=== PATIENT | male | born 1970 | race Caucasian/White ===

== ENCOUNTER 2018-05-18 17:58 | Outpatient (REF) | payer BC, SELFPAY ==
[2018-05-18 21:48] LABS: BUN 14 mg/dL (7-18); CREATININE 0.95 mg/dL (0.70-1.30); Calcium 9.2 mg/dL (8.5-10.1); Chloride 105 mmol/L (98-107); Glucose 112 mg/dL (70-100); Potassium 4.1 mmol/L (3.5-5.1); Sodium 140 mmol/L (136-145); TSH (W/Ref FT4) 2.63 uIU/mL (0.358-3.74)
== END 2018-05-18 18:18 ==
LOC: NCHCN 17:58
PROVIDERS: Visit Provider Nurse Practitioner Family
DX: E03.9 Hypothyroidism, unspecified (principal); Z00.00 Encounter for general adult medical examination without abnormal findings
CPT/HCPCS: 80048; 84443

== ENCOUNTER 2019-06-08 17:29 | Outpatient (REF) | payer BC, SELFPAY ==
[2019-06-08 21:12] LABS: ALT 43 U/L (16-63); AST 16 U/L (15-37); Calculated LDL 125 mg/dL; Cholesterol 172 mg/dL (<200); HDL Cholesterol 36 mg/dL (40-60); TSH 4.07 uIU/mL (0.36-3.74); Triglyceride 58 mg/dL (<150)
== END 2019-06-08 17:49 ==
LOC: NCHCN 17:29
PROVIDERS: Visit Provider Nurse Practitioner Family
DX: E03.9 Hypothyroidism, unspecified (principal); E66.9 Obesity, unspecified
CPT/HCPCS: 80061; 84443; 84450; 84460

== ENCOUNTER 2019-07-03 06:44 | Day surgery (SDC) | payer BC, SELFPAY ==
[2019-07-03 07:07] VITALS: BP 125/87; PULSE 57; RESP 18; TEMP 36.4; O2SAT 97
--- NOTE | 2019-07-03 07:23 | W.PM.DSUDISC ---
Discharge Plan Disposition Patient Disposition: HOME Condition: Good Discharge Details Reason For Visit: EGD Attending Provider: Mirtha Sage Primary Care Provider: Yuli Deal Home Meds and New Rx's Prescriptions: Continued levothyroxine 125 MCG tablet 125 mcg PO DAILY RF: 0 omeprazole 20 MG tablet,delayed release (DR/EC) 20 mg PO DAILY RF: 0 Discharge Instructions Additional Instructions: Findings: Your endoscopy showed a small hiatal hernia. No Barretts esophagus was identified. Follow up: Routine endoscopy is not needed. If new symptoms such as difficulty swallowing occurs, please contact your primary care provider. Please call if you develop: fevers >101.5 Nausea or Vomiting Abdominal pain that is not transient DAY SURGERY UNIT POST COLONOSCOPY INSTRUCTIONS 1. Because there will be medication in your system for the next 24 hours, you may feel a little sleepy. Your coordination will be affected. Therefore: a. Do not drive or operate dangerous equipment for 24 hours. b. Do not drink alcohol beverages for 24 hours (not even beer). c. Plan to go home and rest for the day. 2. Generally there are no restrictions on your activity after a day or so has gone by, but you may feel a bit fatigued for a few days. 3 After you arrive home you may have a light meal and return to a normal diet as you can tolerate it without feeling sick to your stomach. 4. After surgery, you may feel pain or discomfort. This should be only transient, but if it persists please contact your doctor. 5. If there are any questions regarding the findings of your procedure, please feel free to contact your doctor. 6. If you are unable to contact your doctor with a problem, contact the hospital at [phone]. 7. Continue all your regular medications unless directed otherwise. I understand the above instructions and have no questions. Signature of Patient or Responsible Adult Escort Date/Time Name of Responsible Adult Escort Signature of Nurse Date/Time Activity:: Activity as Tolerated Diet:: As Tolerated Discharge Orders Discharge Orders: Discharge Order (Routine); Ordered 07/03/19 Ordered By: Mirtha Sage DS: Diagnosis Discharge Diagnosis (1) GERD without esophagitis: Status: Acute (2) Hiatal hernia: Status: Chronic
[2019-07-03] MEDS: Lactated Ringers 1,000 ML 80 ML IV (07:25)
[2019-07-03 08:20] VITALS: BP 109/71; PULSE 45; RESP 16; TEMP 36.4; O2SAT 96
--- NOTE | 2019-07-03 15:21 | ENDO_ITS ---
DATE OF PROCEDURE: July 03, 2019 PREOPERATIVE DIAGNOSIS: Reflux. POSTOPERATIVE DIAGNOSIS: Small hiatal hernia. PROCEDURE: EGD SURGEON: Mirtha Sage M.D. ANESTHESIA: General. INDICATIONS: This is a 49-year-old man with a fpc history of reflux. His symptoms are well-con trolled on proton pump inhibitors, but if he misses a dose he will have significant return of symptom s. PROCEDURE: He was placed in the left lateral decubitus position. Propofol was titrated to sedation. The scope was advanced into his esophagus under direct visualization and down into the stomach and duodenum. There was no duodenitis or ulcers noted. The stomach itself appeared normal, including on retroflex view of the fundus and lesser curvature, with the exception of a small hiatal hernia. The GE junction was carefully inspected and showed no masses, Gracia's, inflammation or strictures. Th e air was suctioned from the stomach and the scope slowly withdrawn with no other esophageal lesions found. He tolerated the procedure well and was stable to recovery. He will not need a routine upper endoscopy but if symptoms change, including development of dysphagia , then an upper endoscopy can be considered. cc: Yuli Deal N.P.
== END 2019-07-03 08:40 | disposition home or self-care (01) ==
PROVIDERS: PCP Nurse Practitioner Family; Visit Provider Surgery
PROC: 0DJ68ZZ Inspection of Stomach, Via Natural or Artificial Opening Endoscopic (ICD-10-PCS; CPT 43235; principal; 2019-07-03 08:15)
DX: K21.0 Gastro-esophageal reflux disease with esophagitis (principal); K44.9 Diaphragmatic hernia without obstruction or gangrene; F17.220 Nicotine dependence, chewing tobacco, uncomplicated
CPT/HCPCS: 43235

== ENCOUNTER 2020-06-13 19:21 | Outpatient (REF) | payer BC, SELFPAY ==
[2020-06-13 20:47] LABS: TSH 2.25 uIU/mL (0.36-3.74)
== END 2020-06-13 19:41 ==
LOC: NCHCN 19:21
PROVIDERS: PCP Nurse Practitioner Family; Visit Provider Family Medicine
DX: Z00.00 Encounter for general adult medical examination without abnormal findings (principal); E03.9 Hypothyroidism, unspecified
CPT/HCPCS: 84443

== ENCOUNTER 2021-06-16 16:24 | Outpatient (REF) | payer BC, SELFPAY ==
[2021-06-16 15:53] LABS: HGB 16.2 g/dL (13.5-17.5); MCHC 32.4 % (32.0-36.0); MCV 86.5 fL (80-95); MPV 9.6 fL (8.0-11.0); Platelet Count 264 10^3/uL (130-400); RBC 5.78 10^6/uL (4.36-5.78); RDW 13.9 % (11.8-14.1); RDW-SD 44.3 fL; WBC 5.32 10^3/uL (4.4-10.8)
[2021-06-16 16:26] LABS: ALT 52 U/L (16-63); AST 22 U/L (15-37); Anion Gap 11.7 mmol/L (3-11); BUN 13 mg/dL (7-18); CO2 24.3 mmol/L (21.0-32.0); CREATININE 1.1 mg/dL (0.70-1.30); Calcium 8.9 mg/dL (8.5-10.1); Calculated LDL 129 mg/dL (<100); Chloride 105 mmol/L (98-107); Cholesterol 188 mg/dL (<200); Glucose 102 mg/dL (74-106); HDL Cholesterol 36 mg/dL (40-60); Potassium 4.4 mmol/L (3.5-5.1); Sodium 141 mmol/L (136-145); Triglyceride 117 mg/dL (<150)
== END 2021-06-16 16:25 | disposition home or self-care (01) ==
LOC: NCHCN 16:24
PROVIDERS: PCP Nurse Practitioner Family; Visit Provider Nurse Practitioner Family
DX: Z00.00 Encounter for general adult medical examination without abnormal findings (principal); E03.9 Hypothyroidism, unspecified; R79.89 Other specified abnormal findings of blood chemistry
CPT/HCPCS: 80048; 80061; 85027; 84443; 84450; 84460

== ENCOUNTER 2022-05-07 07:34 | Day surgery (SDC) | payer BC, SELFPAY ==
[2022-05-07 07:45] VITALS: BP 132/88; PULSE 57; RESP 16; TEMP 36.2; O2SAT 97
[2022-05-07] MEDS: Lactated Ringers 1,000 ML 80 ML IV (08:04)
--- NOTE | 2022-05-07 09:22 | ANES.PREOP_ITS ---
General Info Date of Service Date Performed: 05/07/22 Height: 6 ft 2 in Weight: 125 kg Body Mass Index (BMI): 35.4 Surgical Procedure: Operation Date: 05/07/22 09:50 Proposed Procedure Side Surgeon p Vega García MD Meds Allergies and Home Medications Allergies Allergy/AdvReac Type Severity Reaction Status Date / Time No Known Allergies Allergy Unverified 05/07/22 07:48 Home Medication Medication Instructions Recorded omeprazole 20 mg tablet,delayed 20 mg PO HS 03/10/15 release levothyroxine 150 mcg capsule 150 mcg PO HS 07/30/21 bisacodyl 5 mg tablet,delayed 5 mg PO ONCE #4 tabs 04/22/22 release (Dulcolax (bisacodyl)) polyethylene glycol 3350 17 17 g PO ONCE #238 grams 04/22/22 gram/dose oral powder Current Visit Medications: Current Medications Generic Name Dose Route Start Last Admin Trade Name Freq PRN Reason Stop Dose Admin Ringer's Solution 1,000 mls @ 80 mls/hr 05/07/22 06:00 05/07/22 08:04 IV 06/05/22 23:59 80 mls/hr INFUSION ERASMO Administration IV Miscellaneous Supplies 1 each 05/07/22 06:00 Iv Access IV 06/05/22 23:59 DIRECTED ERASMO Sodium Chloride 0 ml 05/07/22 06:00 Normal Saline Flush 10 Ml Syr IV 06/05/22 23:59 PRN PRN Sodium Chloride 0 ml 05/07/22 06:00 Normal Saline 10 Ml Vial IJ 06/05/22 23:59 DIRECTED PRN Sterile Water 0 ml 05/07/22 06:00 Water,Injection,Sterile 10 Ml Vial IJ 06/05/22 23:59 DIRECTED PRN PFSH Active Problems Active Problems: Problem Status Onset Code Screening for colon cancer Z12.11 Hiatal hernia K44.9 GERD without esophagitis K21.9 Medical History Medical History Chronic sinus bradycardia GERD (gastroesophageal reflux disease) Hx of fracture of forearm L arm Hypothyroidism Obesity Tobacco chew use Medical History Comments:: Daily marijauna Surgical History Surgical History Cholecystectomy (05/12/16) [facility] DR. GUZMÁN History of uvulopalatopharyngoplasty Hx of cataract extraction Hx of thumb surgery L thumb Repair, ACL ? Right Tobacco Smoking/Tobacco Use Status: Current every day Tobacco Type: smokeless tobacco Smokeless tobacco user: chewing tobacco Alcohol Alcohol Intake: current Alcohol intake frequency: a few times a month Alcohol type: beer and hard liquor Substance Use Substance use: Daily Substance use type: marijuana Details: alcohol: t-14. marijuana: t-1, couple hits Vital Signs and Lab Results Vital Signs Most Recent Vital Signs in EMR: Most Recent Vital Signs Temp Pulse Resp BP Pulse Ox 36.2 C L 57 L 16 132/88 97 05/07/22 07:45 05/07/22 07:45 05/07/22 07:45 05/07/22 07:45 05/07/22 07:45 Lab Results Blood Type / Crossmatch: No Data to Display Complete Blood Count: No Data to Display Complete Metabolic Panel: No Data to Display Liver Function Panel: No Data to Display Coagulation Panel: No Data to Display Cardiac Panel: No Data to Display Arterial Blood Gas: No Data to Display Venous Blood Gas: No Data to Display Pancreas Panel: No Data to Display Thyroid Panel: No Data to Display Infectious Disease: No Data to Display Blood Cultures: No Data to Display Toxicology Panel: No Data to Display Anesthesia Assessment and Plan Anesthesia History Personal History: No History of Anesthesia Complications Family History: No Family History of Anesthesia Complications Exercise Tolerance Exercise Tolerance: Metabolic Equivalents>4 Pertinent Negatives Pertinent Negatives: No Symptoms of GERD, No Major Cardiovascular Symptoms or Complaints and No Major Pulmonary Symptoms or Complaints Cardiac & Pulmonary Exam Cardiac Exam: Normal S1/S2 Heart Sounds Pulmonary Exam: Clear Bilateral Breath Sounds Implantable Cardiac Device Does patient have a Pacemaker or an ICD?: No Airway Exam Known Difficult Airway: No Mallampati Class: 1 Mouth Opening: Normal (> 3cm) Thyromental Distance: Greater than 3 cm Neck Range of Motion: Full ROM Neck Circumference: Normal Teeth Condition: Normal Dentition ASA Classification ASA Score: ASA 2 Emergency Case?: No NPO Status NPO Status: NPO Clears >2 hours, Solids >8 hours Anesthesia Plan Resuscitation Status: Full Code Anesthesia Technique: General Anesthesia Airway Planned: Natural Airway Monitors Used: Standard Monitors
[2022-05-07 09:25] VITALS: BMI 35.4
--- NOTE | 2022-05-07 09:55 | BOWEL_PTH ---
PATIENT: Sindy Conteh LOC: [facility] U#:[id number] AGE/SX: 51/M ROOM: RE05/07/[address]: Ian García : 1970 BED: DIS: 05/07/2022 SPEC #: [id number] RECD: 05/07/22 12:44 STATUS: ALIE REQ #: [id number] HIRAM: 05/07/22 09:[address]: Ian García DEPT: Surgical Specimen RECD BY: Marga Haddad ENTERED: 05/07/22 12:44 SP TYPE: Bowel OTHR DR: Yuli Deal Tissues: 1 - BIOPSY BOWEL Procedures: GROSS AND MICRO LEVEL 4 Comments: [id number]
--- NOTE | 2022-05-07 09:59 | W.COLOREPORT ---
Date of service: 05/07/22 Time of Service: 09:59 Colonoscopy Report Procedure Description: Procedures performed: 1. Colonoscopy 2. Snare polypectomy x2 Preoperative diagnosis: Screening colonoscopy Postoperative diagnosis: Polyps Surgeon: Rosas García Anesthesia: Myesha Indication for procedure: 51-year-old man with no symptoms and no family history of significance and no prior colonoscopy. Findings: Normal terminal ileum.? Two 5-7 mm sessile rectal polyps removed with hot snare technique. Surveillance/follow-up recommendations: 3 - 10 years pending path results. Sessile serrated or villous histology warrants 3 years, simple adenomas 7 years, if hyperplastic by chance (not suspected) in 10 years. Complications: None Blood loss: Minimal Procedure in detail: Written consent was obtained from the patient who was in agreement with the risks, benefits and indications of the procedure.? We went to the endoscopy suite and laid the patient in left lateral decubitus position.? Anesthesia was administered which was tolerated well.? A timeout was performed and when we are all in agreement we began the procedure. Digital rectal exam and visual examination was performed and within normal limits.? A well?lubricated colonoscope was advanced without difficulty all the way to the cecum identified by the ileocecal valve, and triangular folds and appendiceal orifice.? Terminal ileum was normal.? It was then slowly withdrawn.?? Retroflexion was performed in the rectum.? The findings/interventions are noted above. The scope was then removed and the patient tolerated the procedure well and was then taken back to the PACU in hemodynamically stable condition.
[2022-05-07 10:04] VITALS: BP 115/74; PULSE 48; RESP 16; TEMP 36; O2SAT 95
--- NOTE | 2022-05-07 10:12 | W.ANESPOSTOP ---
Postoperative Evaluation Date, Time and Location Date Performed: 05/07/22 Time Performed: 10:04 Patient Location: Day Surgery Unit Vital Signs Most Recent Imported Vital Signs: Most Recent Vital Signs Temp Pulse Resp BP Pulse Ox 36 C L 48 L 16 115/74 95 05/07/22 10:04 05/07/22 10:04 05/07/22 10:04 05/07/22 10:04 05/07/22 10:04 Pain Score Most Recent Pain Score: Most Recent Pain Score Pain Level 0 05/07/22 10:04 Assessment Mental Status: Awake (Alert & Oriented to Patient Baseline) Airway and Respiratory Function: Patent airway with normal (patient baseline) respiratory exam Cardiovascular Function: Hemodynamically Stable Hydration Status: Adequately Hydrated Nausea & Vomiting: No Nausea or Vomiting Pain: Pt. Denies Any Pain Peripheral Nerve Block: Patient did not receive a nerve block
[2022-05-07 10:25] VITALS: BP 119/78; PULSE 52; RESP 16; TEMP 35.9; O2SAT 98
== END 2022-05-07 10:31 | disposition home or self-care (01) ==
PROVIDERS: PCP Nurse Practitioner Family; Visit Provider Student in an Organized Health Care Education/Training Program
PROC: 0DJD8ZZ Inspection of Lower Intestinal Tract, Via Natural or Artificial Opening Endoscopic (ICD-10-PCS; CPT 45378; principal; 2022-05-07 09:45)
DX: Z12.11 Encounter for screening for malignant neoplasm of colon (principal); K62.1 Rectal polyp
CPT/HCPCS: 45385; 88305

== ENCOUNTER 2022-06-22 15:55 | Outpatient (REF) | payer BC, SELFPAY ==
[2022-06-22 21:00] LABS: HCT 49.4 % (40.0-50.0); HGB 16.6 g/dL (13.5-17.5); MCH 28.9 pg (27.0-33.0); MCHC 33.6 % (32.0-36.0); MCV 86 fL (80-95); MPV 9.6 fL (8.0-11.0); Platelet Count 314 10^3/uL (130-400); RBC 5.75 10^6/uL (4.36-5.78); RDW 14.2 % (11.8-14.1); RDW-SD 44.7 fL; WBC 6.53 10^3/uL (4.4-10.8)
[2022-06-22 21:20] LABS: ALT 57 U/L (16-63); AST 27 U/L (15-37); Albumin 4.3 g/dL (3.4-5.0); Alkaline Phosphatase 91 U/L (46-116); BUN 9 mg/dL (7-18); Bilirubin, Total 0.5 mg/dL (0.2-1.0); CREATININE 1.1 mg/dL (0.70-1.30); Calcium 9.4 mg/dL (8.5-10.1); Chloride 106 mmol/L (98-107); Estimated GFR 81.78 (mL/min/1.73m2); Glucose 99 mg/dL (74-106); Potassium 4.4 mmol/L (3.5-5.1); Sodium 142 mmol/L (136-145); TSH (W/Ref FT4) 1.74 uIU/mL (0.36-3.74); Total Protein 7.7 g/dL (6.4-8.2)
[2022-06-22 21:26] LABS: Hemoglobin A1C 5.3 % (<5.7)
[2022-06-23 20:56] LABS: PSA, Screening 0.3 ng/mL (<=3.5)
[2022-06-24 10:30] LABS: HIV-1/2 Ag & Ab Screen Negative (Negative)
[2022-06-24 10:33] LABS: Hepatitis C Ab w Rflx HCV PCR Negative (Negative)
== END 2022-06-22 15:56 | disposition home or self-care (01) ==
LOC: NCHCN 15:55
PROVIDERS: PCP Nurse Practitioner Family; Visit Provider Nurse Practitioner Family
DX: E03.9 Hypothyroidism, unspecified (principal); Z12.5 Encounter for screening for malignant neoplasm of prostate; Z11.4 Encounter for screening for human immunodeficiency virus [HIV]; Z00.00 Encounter for general adult medical examination without abnormal findings; Z11.59 Encounter for screening for other viral diseases; Z13.1 Encounter for screening for diabetes mellitus; E66.8 Other obesity
CPT/HCPCS: 80053; 84153; 85027; 86803; 87389; 83036; 84443

== ENCOUNTER 2023-03-11 08:47 | Outpatient (CLI) | payer BC, SELFPAY ==
--- NOTE | 2023-03-11 08:45 | DI.RAD_ITS ---
Exam(s) XR FOOT LT COMPLETE EXAM: XR FOOT LT COMPLETE CLINICAL HISTORY: left ankle injury. TECHNIQUE: 2D digital imaging was performed. COMPARISON: No exams were available for comparison FINDINGS: 3 views Distal fibular fracture noted. See separate ankle report. There are no fractures in the foot. No d iastasis of the Lisfranc joint. No radiopaque foreign body. No osseous lesions. IMPRESSION: Ankle fracture. See separate ankle report. DATA REPOSITORY: RADIATION DOSE DELIVERED:
--- NOTE | 2023-03-11 08:45 | DI.RAD_ITS ---
Exam(s) XR ANKLE LT COMPLETE EXAM: XR ANKLE LT COMPLETE CLINICAL HISTORY: LEFT ANKLE INJURY. TECHNIQUE: 2D digital imaging was performed. COMPARISON: No exams were available for comparison FINDINGS: 3 views There is soft tissue swelling laterally. There are fracture lines in the distal fibula both oblique and transverse. At and above the lateral malleolus. No obvious widening of the mortise. Medial and posterior malleoli are intact as is the talar dome. Base of the 5th metatarsal is intact IMPRESSION: Both oblique and transverse fractures of the distal fibula as described above. Wet read DATA REPOSITORY: RADIATION DOSE DELIVERED:
== END 2023-03-11 08:48 | disposition home or self-care (01) ==
PROVIDERS: PCP Nurse Practitioner Family; Visit Provider Physician Assistant
DX: S82.422A Displaced transverse fracture of shaft of left fibula, initial encounter for closed fracture (principal); X58.XXXA Exposure to other specified factors, initial encounter; W19.XXXA Unspecified fall, initial encounter
CPT/HCPCS: 73610; 73630

== ENCOUNTER 2023-04-08 10:40 | Outpatient (CLI) | payer BC, SELFPAY ==
--- NOTE | 2023-04-08 09:15 | DI.RAD_ITS ---
Exam(s) XR ANKLE LT COMPLETE EXAM: XR ANKLE LT COMPLETE CLINICAL HISTORY: f/u L FIB FX. TECHNIQUE: 2D digital imaging was performed. COMPARISON: CR XR ANKLE LT COMPLETE from 03/11/2023 FINDINGS: 3 views Fracture lines in the distal fibula appear unchanged. No further displacement. There is mild wideni ng of the ankle mortise noted. Talar dome unremarkable. Small calcific density just medial to the m edial malleolus may be an avulsion injury. Small in these 0 fight posterior calcaneus Achilles inser tion site. Os trigonum noted. IMPRESSION: Findings as above but with relatively stable appearance compared to prior study of 03/11/2023. DATA REPOSITORY: RADIATION DOSE DELIVERED:
== END 2023-04-08 10:41 | disposition home or self-care (01) ==
LOC: DIORS 10:40
PROVIDERS: PCP Nurse Practitioner Family; Referring Provider Nurse Practitioner Family; Visit Provider Student in an Organized Health Care Education/Training Program
DX: S82.425D Nondisplaced transverse fracture of shaft of left fibula, subsequent encounter for closed fracture with routine healing (principal); X58.XXXD Exposure to other specified factors, subsequent encounter
CPT/HCPCS: 73610

== ENCOUNTER 2023-06-24 15:33 | Outpatient (REF) | payer BC, SELFPAY ==
[2023-06-24 14:33] LABS: HCT 49.4 % (40.0-50.0); HGB 17.7 g/dL (13.5-17.5); MCH 30.7 pg (27.0-33.0); MCHC 35.8 % (32.0-36.0); MCV 86 fL (80-95); MPV 9.3 fL (8.0-11.0); Platelet Count 308 10^3/uL (130-400); RBC 5.77 10^6/uL (4.36-5.78); RDW 14.6 % (11.8-14.1); RDW-SD 43.5 fL; WBC 6.71 10^3/uL (4.4-10.8)
[2023-06-24 15:01] LABS: ALT 78 U/L (16-63); AST 33 U/L (15-37); Alkaline Phosphatase 99 U/L (46-116); Anion Gap 10.5 mmol/L (3-11); BUN 13 mg/dL (7-18); Bilirubin, Total 0.5 mg/dL (0.2-1.0); CO2 24.5 mmol/L (21.0-32.0); Calcium 9.7 mg/dL (8.5-10.1); Calculated LDL 125 mg/dL (<100); Chloride 105 mmol/L (98-107); Cholesterol 192 mg/dL (<200); Estimated GFR 91.12 (mL/min/1.73m2); Glucose 112 mg/dL (74-106); HDL Cholesterol 38 mg/dL (40-60); Potassium 4.5 mmol/L (3.5-5.1); Sodium 140 mmol/L (136-145); Total Protein 8.2 g/dL (6.4-8.2); Triglyceride 148 mg/dL (<150)
[2023-06-24 15:48] LABS: FREE T4 1.12 ng/dL (0.76-1.46)
[2023-06-24 22:22] LABS: PSA, Screening 0.3 ng/mL (<=3.5)
== END 2023-06-24 15:34 | disposition home or self-care (01) ==
LOC: NCHCN 15:33
PROVIDERS: PCP Nurse Practitioner Family; Visit Provider Nurse Practitioner Family
DX: Z00.00 Encounter for general adult medical examination without abnormal findings (principal); E03.9 Hypothyroidism, unspecified; Z13.220 Encounter for screening for lipoid disorders; Z12.5 Encounter for screening for malignant neoplasm of prostate
CPT/HCPCS: 80053; 80061; 84153; 85027; 84439; 84443

== ENCOUNTER 2023-06-29 21:06 | Emergency (ER) | payer BC, SELFPAY ==
--- NOTE | 2023-06-29 21:00 | RT.EKG_ITS ---
APPROVED REPORT Exam: Resting ECG Reason for Exam: Chest Pain Patient Location: E HR:118 bpm ECG Measurements Heart Rate 118 AXIS TN 158 P 55 QRSd 111 QRS 121 QT 317 T 28 QTc 445 Conclusion Sinus tachycardia...rate> 99 Probable right ventricular hypertrophy...prominent R or R' w/ RAD or AGUILAR Sinus tachycardia at a rate of 118. Right axis deviation. No ST segment abnormalities. No T wave i nversions. TN and QTc within normal limits. Interventricular conduction delay incomplete right bund le ursula block. No prior for comparison. No acute injury pattern.
[2023-06-29 21:11] VITALS: BP 175/136; PULSE 128; RESP 26; TEMP 36.6; O2SAT 96
--- NOTE | 2023-06-29 21:15 | DI.CT_ITS ---
Exam(s) CT CHEST PE CTA EXAM: CT CHEST PE CTA CLINICAL HISTORY: Chest Pain, SOB, Tachycardia. TECHNIQUE: Imaging Protocol: Axial CT angiography was performed with multi-slice acquisition and mu lti-planar reconstructions as well as axial, coronal and sagittal MIP reconstructions. CONTRAST MATERIAL: Intravenous: Omnipaque 350 Contrast volume:100 ml COMPARISON: CT ABD PELVIS WITH CONTRAST from 04/27/2016 FINDINGS: Exam is limited due to respiratory motion. Pulmonary Arteries: No evidence of filling defect to suggest pulmonary emboli. Tracheobronchial tree: No mucous plugging. Mediastinum and Seda: No dominant adenopathy or fluid collection. Pulmonary parenchyma: Nodular infiltrates noted at both lower lobes, left greater than right. Small nodular infiltrate also seen in right upper lobe. Pleura: No effusion or pneumothorax. Heart: The heart is not dilated. No coronary artery calcifications are seen. Aorta: Thoracic aorta non-dilated. No dissection. Upper abdomen: No acute findings. Small hiatal hernia. Status post cholecystectomy. Hepatic steat osis. Bones: Mild anterior wedging of lower thoracic vertebral bodies and degenerative changes, similar to prior. Tubes, Catheters, and Lines: None Soft tissues: Unremarkable. IMPRESSION: No evidence of pulmonary embolism. Bilateral pneumonia, greatest in the lower lobes. RADIATION DOSE DELIVERED: 570.64mGy.cm Total DLP DATA REPOSITORY: All CT scans at this facility are submitted to the National Radiology Data Registry (NRDR) Dose Index Registry (DIR) with the [employer] (ACR). RADIATION OPTIMIZATION: All CT scans at this facility use at least one of these dose optimization te chniques: automated exposure control; mA and/or kV adjustment per patient size (includes targeted exa ms where dose is matched to clinical indication); or iterative reconstruction.
--- NOTE | 2023-06-29 21:24 | ED.GENADUL_ITS ---
HPI General Mode of arrival: ambulatory . Date/Time Provider Initiated Documentation: 06/29/23 21:10 . Limitations to Documentation: no limitations . Information obtained by: patient, RN notes reviewed and old records reviewed . HPI Narrative: 53-year-old male presents to the ER with chief complaint of chest pain, shortness of breath which began on Tuesday. He reports worsening prior to arrival. He states that started with cold-like symptoms on Tuesday was seen by his PCP and was exposed to somebody who eventually tested positive for COVID on Tuesday. He presents tachycardic with a heart rate of 130 he reports that at home his heart rate was up in 150s and hypertensive. He does have a bronchospastic type cough, inspiratory expiratory wheezes on auscultation bilaterally. Past medical history includes chewing tobacco use, obesity GERD, hypothyroidism, bradycardia. He endorses occasional alcohol once a month none recent. He is complaining of some right-sided substernal chest pain. Related Data Home Medications Medication Instructions Recorded Confirmed omeprazole 20 mg tablet,delayed 20 mg PO HS 03/10/15 06/29/23 release levothyroxine 150 mcg capsule 150 mcg PO HS 07/30/21 06/29/23 doxycycline hyclate 100 mg tablet 100 mg PO BID 10 days #20 tabs 06/29/23 molnupiravir 200 mg capsule (EUA) 800 mg (4 x 200 mg) PO Q12H Covid 06/29/23 (Lagevrio) 19 5 days #40 caps tirzepatide 2.5 mg/0.5 mL mg subcut 06/29/23 subcutaneous pen injector (Mounjaro) Previous Rx's Medication Instructions Recorded doxycycline hyclate 100 mg tablet 100 mg PO BID 10 days #20 tabs 06/29/23 molnupiravir 200 mg capsule (EUA) 800 mg (4 x 200 mg) PO Q12H Covid 06/29/23 (Lagevrio) 19 5 days #40 caps Allergies Allergy/AdvReac Type Severity Reaction Status Date / Time No Known Allergies Allergy Unverified 06/29/23 21:16 General Stated Complaint: Chest Pain REJI: 3 Review of Systems All systems reviewed & are unremarkable except as noted in HPI and below Cardiovascular Cardiovascular: Reports chest pain, Reports rapid heart rate, Denies leg edema and Reports dyspnea Respiratory Respiratory: Reports as per HPI, Reports cough, Denies hemoptysis, Reports dyspnea and Reports wheezing Gastrointestinal Gastrointestinal: Denies abdominal pain, Reports diarrhea, Reports nausea and Denies vomiting Allergic/Immunologic Allergic/Immunologic: Reports wheezing Exam Narrative Exam Narrative: Constitutional: Alert and oriented x3. Appears stated age. Normal body habitus. Head: Normocephalic, no trauma. Eyes: Pupils PERRL, Red reflex noted, EOM's intact. Eyelids symmetrical without lesions, discharge, or swelling. ENT: Bilateral TM's WNL, External ear normal to inspection, no mastoid TTP, swelling, or erythema, Nasal turbinates WNL, no nasal discharge. Normal dentition, Posterior pharynx WNL, no exudate. Chest: Tachycardic, normal S1, S2, distal pulses intact. Resp: Bilateral wheezing Abdomen: Soft, non-distended, Normoactive bowel sounds all 4 quads. Musculoskeletal: Normal gait, 5/5 strength to all four extremities. Skin: No suspicious rashes or lesions. Capillary refill less than 2 sec. Neurologic: Cranial nerves II-XII intact. Alert and oriented x 3. Motor: No deficits noted. Sensory: Intact bilaterally all 4 extremities. Reflexes: DTR's intact bilaterally.. Hematologic/Lymphatic: No ecchymosis, no lymphadenopathy. Course Vital Signs Vital signs: Vital Signs Temperature 36.6 C 06/29/23 21:11 Pulse 128 H 06/29/23 21:11 Respiratory Rate 26 H 06/29/23 21:11 Blood Pressure 175/136 H 06/29/23 21:11 Pulse Oximetry 96 06/29/23 21:11 Temperature 36.6 C 06/29/23 21:11 Pulse 128 H 06/29/23 21:11 Respiratory Rate 26 H 06/29/23 21:11 Respiratory Effort Normal 06/29/23 21:13 Respiratory Pattern Tachypnea 06/29/23 21:13 Blood Pressure 175/136 H 06/29/23 21:11 Pulse Oximetry 96 06/29/23 21:11 Oxygen Delivery Method Room Air 06/29/23 21:11 Oxygen Flow Rate 0 06/29/23 21:11 Medical Decision Making 53-year-old male presents to the ER with chief complaint of chest pain, shortness of breath which began on Tuesday. He reports worsening prior to arrival. He states that started with cold-like symptoms on Tuesday was seen by his PCP and was exposed to somebody who eventually tested positive for COVID on Tuesday. He presents tachycardic with a heart rate of 130 he reports that at home his heart rate was up in 150s and hypertensive. He does have a bronchospastic type cough, inspiratory expiratory wheezes on auscultation bilaterally. Past medical history includes chewing tobacco use, obesity GERD, hypothyroidism, bradycardia. He endorses occasional alcohol once a month none recent. He is complaining of some right-sided substernal chest pain. Workup ordered including CBC CMP, serial troponins, proBNP procalcitonin, D- dimer, chest x-ray canceled and added on CT chest rule out PE, COVID flu RSV swab ordered. Liter normal saline and a DuoNeb. Patient is afebrile upon arrival with a temp of 36.6. Informed by staff development coordinator rn that patient reported he took 2 puffs from albuterol inhaler prior to arrival and has not ate or drink much in the last few days. Heart rate is 113, O2 sat 91% on room air, respiration 22, COVID is positive, D- dimer slightly elevated at 700 blood cell count 10.4, procalcitonin 0.2. 2220: At this time O2 sat 92% on room air heart rate 125. Will consider outpatient COVID treatment pending CT chest. CT chest shows no evidence for PE, there are multilobular infiltrates in the lower lobes right upper lobe and right middle lobe. No pneumothorax no pleural effusion. Road test and ambulatory oximetry tested patient's O2 sat went up to 95 to 95% on room air. Will give him an albuterol inhaler to go, doxycycline here p.o. and a prescription for antiviral molnupiravir. Discussed home care, strict return instructions and follow-up care. Patient verbalized understanding. I did offer admission however patient opted to be treated as an outpatient. This text was generated using [employer] system, please disregard any oddities of phrase or misspellings. Lab Data Lab results reviewed: Yes I reviewed the patient's lab results. Labs: Laboratory Tests Range/Units 06/29/23 21:20 WBC (4.4-10.8) 10^3/uL 10.84 H RBC (4.36-5.78) 10^6/uL 6.27 H Hgb (13.5-17.5) g/dL 17.8 H Hct (40.0-50.0) % 52.1 H MCV (80-95) fL 83 MCH (27.0-33.0) pg 28.4 MCHC (32.0-36.0) % 34.2 RDW (11.8-14.1) % 14.1 Plt Count (130-400) 10^3/uL 319 MPV (8.0-11.0) fL 9.2 Immature Gran % 0.5 Neutrophils % 64.0 Lymphocytes % 20.3 Monocytes % 13.4 Eosinophils % 1.0 Basophils % 0.8 Nucleated RBC % (0.0-0.3) % 0.0 Absolute Neutrophils (1.2-6.7) 10^3/uL 6.94 H Absolute Lymphocytes (1.2-3.4) 10^3/uL 2.20 Absolute Monocytes (0.1-0.8) 10^3/uL 1.45 H Absolute Eosinophils (0.0-0.7) 10^3/uL 0.11 Absolute Basophils (0.0-0.2) 10^3/uL 0.09 RBC Morphology Normal PT (9.1-11.1) sec 10.4 INR (0.9-1.1) 1.0 D-Dimer (<500) ng/mlFEU 715 H Sodium (136-145) mmol/L 138 Potassium (3.5-5.1) mmol/L 3.8 Chloride (98-107) mmol/L 101 Carbon Dioxide (21.0-32.0) mmol/L 24.4 Anion Gap (3-11) mmol/L 12.6 H BUN (7-18) mg/dL 12 Creatinine (0.70-1.30) mg/dL 1.3 Est GFR (CKD-EPI 2020) (mL/min/1.73m2) 66.51 Glucose (74-106) mg/dL 109 H Calcium (8.5-10.1) mg/dL 9.8 Magnesium (1.8-2.4) mg/dL 2.0 Total Bilirubin (0.2-1.0) mg/dL 0.6 AST (15-37) U/L 24 ALT (16-63) U/L 43 Alkaline Phosphatase (46-116) U/L 93 Troponin I (< or =60) ng/L < 50 NT-Pro-B Natriuret Pep (<300) pg/mL 13 Total Protein (6.4-8.2) g/dL 8.8 H Albumin (3.4-5.0) g/dL 3.7 Procalcitonin ng/mL 0.2 COVID-19 Source Nasopharynx SARS-CoV-2 (PCR) (Negative) Positive A Influenza Type A (PCR) (Negative) Negative Influenza Type B (PCR) (Negative) Negative RSV (PCR) (Negative) Negative Quality:SDOH Health Related Social Needs: No Data to Display PFSH All Active Problems (Updated 06/29/23 @ 23:46 by Doris Wilson NP) Pneumonia due to COVID-19 virus (Acute) COVID-19 (Acute) Left foot pain (Acute) Closed left fibular fracture (Acute ~02/2023) Screening for colon cancer (Acute) Hiatal hernia (Chronic) GERD without esophagitis (Acute) Medical History Hx of fracture of forearm L arm Tobacco chew use Obesity Chronic sinus bradycardia GERD (gastroesophageal reflux disease) Hypothyroidism Surgical History Hx of thumb surgery L thumb Hx of cataract extraction History of uvulopalatopharyngoplasty Repair, ACL ? Right Cholecystectomy (05/12/16) [facility] DR[address] GUZMÁN Social History Smoking/Tobacco Use Status: Current every day Tobacco Type: smokeless tobacco Smokeless tobacco user: chewing tobacco Smoking risk assessment performed?: Yes Alcohol Intake: current Alcohol Intake frequency: a few times a month Alcohol type: beer and hard liquor Drug use: Daily Substance use type: marijuana Details: alcohol: t-14. marijuana: t-1, couple hits Current gender identity: male Do you feel safe at home: Yes Do you feel safe in your relationship?: Yes Discharge Plan Disposition Patient Disposition: Home Condition: Stable Discharge Details Clinical Impression: COVID-19, Pneumonia due to COVID-19 virus Primary Care Provider: Yuli Deal ED Provider: Doris Wilson Home Meds and New Rx's Prescriptions: New doxycycline hyclate 100 mg tablet 100 mg PO BID 10 Days Qty: 20 0RF Lagevrio (EUA) 200 mg capsule 800 mg PO Q12H 5 Days Qty: 40 0RF Rx Instructions: Take 4 tablets twice daily x 5 days No Action levothyroxine 150 mcg capsule 150 mcg PO HS omeprazole 20 MG tablet,delayed release (DR/EC) 20 mg PO HS Mounjaro 2.5 mg/0.5 mL pen injector SUBCUT Patient Comments: ADMINISTER 2.5 MG UNDER THE SKIN EVERY WEEK Discharge Instructions Instructions: Pneumonia (ED), COVID-19 (Coronavirus Disease 2019) (ED) Additional Instructions: Please take the antibiotic twice a day with yogurt or probiotic as directed. Use the albuterol inhaler 1 or 2 puffs every 4-6 hours as needed. Also take the antiviral as prescribed. Taking multivitamin that includes vitamin D3, zinc vitamin C. You may take [id number] cough and cold medicine as needed. You may consider getting a [id number] pulse oximeter to monitor your oxygenation. If it drops below 90% for 15 minutes or greater please return to the ER. Continue to wear masks and quarantine as directed by the CDC. Follow up with primary care provider in 7-10 days. Return to ED sooner if any worsening or concerns. Increase oral fluids. Please take Tylenol or Ibuprofen with food every 4-6 hours as needed for pain and swelling. Stand Alone Forms: Work Release Referrals: Yuli Deal [Primary Care Provider] - 5 days
[2023-06-29] MEDS: Normal Saline 1,000 ML 1000 ML IV (21:28)
[2023-06-29 21:29] LABS: Abs Immature Grans 0.05 10^3/uL (0.0-0.06); Absolute Basophil Count 0.09 10^3/uL (0.0-0.2); Absolute Eosinophil Count 0.11 10^3/uL (0.0-0.7); Absolute Monocyte Count 1.45 10^3/uL (0.1-0.8); Absolute Neutrophil Count 6.94 10^3/uL (1.2-6.7); Basophils % 0.8; HCT 52.1 % (40.0-50.0); HGB 17.8 g/dL (13.5-17.5); Immature Grans % 0.5; Lymphocytes % 20.3; MCH 28.4 pg (27.0-33.0); MCHC 34.2 % (32.0-36.0); MCV 83 fL (80-95); MPV 9.2 fL (8.0-11.0); Monocytes % 13.4; Platelet Count 319 10^3/uL (130-400); RBC 6.27 10^6/uL (4.36-5.78); RDW 14.1 % (11.8-14.1); WBC 10.84 10^3/uL (4.4-10.8)
[2023-06-29] MEDS: Albuterol/Ipratropium 3 ML UPD VIAL UPD (21:33)
[2023-06-29 21:37] LABS: Prothrombin Time 10.4 sec (9.1-11.1)
[2023-06-29 21:44] LABS: ALT 43 U/L (16-63); AST 24 U/L (15-37); Albumin 3.7 g/dL (3.4-5.0); Alkaline Phosphatase 93 U/L (46-116); Anion Gap 12.6 mmol/L (3-11); BUN 12 mg/dL (7-18); Bilirubin, Total 0.6 mg/dL (0.2-1.0); CO2 24.4 mmol/L (21.0-32.0); CREATININE 1.3 mg/dL (0.70-1.30); Calcium 9.8 mg/dL (8.5-10.1); Chloride 101 mmol/L (98-107); Estimated GFR 66.51 (mL/min/1.73m2); Glucose 109 mg/dL (74-106); Potassium 3.8 mmol/L (3.5-5.1); Sodium 138 mmol/L (136-145); Total Protein 8.8 g/dL (6.4-8.2); Troponin I < 50 ng/L (< or =60)
[2023-06-29 21:49] LABS: NT-proBNP 13 pg/mL (<300)
[2023-06-29 21:55] LABS: Diff Comment Diff Reviewed
[2023-06-29 21:56] LABS: RBC Morphology Normal
[2023-06-29 22:02] LABS: Influenza A PCR Negative (Negative); Influenza B PCR Negative (Negative); RSV PCR Negative (Negative)
[2023-06-29 22:05] LABS: COVID-19 PCR Positive (Negative); D-Dimer 715 ng/mlFEU (<500); Procalcitonin 0.2 ng/mL; Source Nasopharynx
[2023-06-29] MEDS: Normal Saline - Diluent 50 ML VIAL IJ (23:06)
[2023-06-29] MEDS: Omnipaque 350 MG/ML 100 ML BTL IJ (23:07)
--- NOTE | 2023-06-29 23:34 | DI.VRAD_ITS ---
PROCEDURE INFORMATION: Exam: CTA Chest With Contrast Exam date and time: 06/29/2023 10:47 PM Age: 53 years old Clinical indication: Other: Chest pain, SOB, tachy TECHNIQUE: Imaging protocol: Computed tomographic angiography of the chest with contrast. Exam focused on the arteries. 3D rendering (Not supervised by radiologist): MIP and/or 3D reconstructed images were created by the technologist. Contrast material: 350; Contrast volume: 100 ml; Contrast route: INTRAVENOUS (IV); COMPARISON: No relevant prior studies available. FINDINGS: Pulmonary arteries: Normal. No pulmonary emboli. Aorta: Unremarkable. No aortic aneurysm. No aortic dissection. Lungs: There are atelectatic changes in the dependent portions of lungs. There are nodular infiltrates in both lower lobes, right upper lobe, and right middle lobe. Pleural spaces: Unremarkable. No pneumothorax. No pleural effusion. Heart: Unremarkable. No cardiomegaly. No pericardial effusion. Lymph nodes: Unremarkable. No enlarged lymph nodes. Diaphragm: There is a small hiatal hernia. Gallbladder and bile ducts: Surgical changes of prior cholecystectomy. Bones/joints: There is mild degenerative the left glenohumeral joint. There is mild anterior wedging of the T10, T11 and T12 vertebral bodies with secondary increased kyphosis of the thoracolumbar spine. Multilevel degenerative of thoracic spine with anterior osteophytes. Soft tissues: Unremarkable. IMPRESSION: Multilobar infiltrates, consistent with multilobar pneumonia. Dictated and Authenticated by: Glenn Garcia MD. Ordering:JOYCE George MD
[2023-06-29] MEDS: Albuterol HFA 8 GM 60 PUFF INH IH (23:59)
[2023-06-29] MEDS: Dexamethasone 10 MG/ML VIAL 6 MG IVP (23:59)
[2023-06-30] MEDS: Doxycycline Hyclate 100 MG CAP PO
[2023-06-30] MEDS: Doxycycline Hyclate 100 MG, 2 CAPS/BTL PO
== END 2023-06-30 | disposition home or self-care (01) ==
PROVIDERS: Emergency Provider Registered Nurse Emergency; PCP Nurse Practitioner Family
DX: U07.1 COVID-19 (principal); J12.82 Pneumonia due to coronavirus disease 2019; R00.0 Tachycardia, unspecified; Z11.52 Encounter for screening for COVID-19
CPT/HCPCS: 71275; 80053; 84145; 87637; 93005; 94640; 96360; 99285; 83735; 83880; 84484; 85025; 85379; 85610; 93010; 99284; J1100; J3490; J7620

== ENCOUNTER 2023-09-22 14:40 | Outpatient (REF) | payer BC, SELFPAY | END 2023-09-22 14:41 | disposition home or self-care (01) | LOC: NCHCN 14:40 | PROVIDERS: PCP Nurse Practitioner Family; Visit Provider Nurse Practitioner Family | DX: E03.9 Hypothyroidism, unspecified (principal) | CPT/HCPCS: 84443 ==

== ENCOUNTER 2024-06-29 10:15 | Outpatient (REF) | payer BC, SELFPAY ==
[2024-06-29 15:40] LABS: ALT 26 U/L (16-63); AST 12 U/L (15-37); Albumin 3.8 g/dL (3.4-5.0); Alkaline Phosphatase 87 U/L (46-116); Anion Gap 5.6 mmol/L (3-11); BUN 12 mg/dL (7-18); Bilirubin, Total 0.44 mg/dL (0.2-1.0); CO2 30.4 mmol/L (21.0-32.0); CREATININE 0.9 mg/dL (0.70-1.30); Calcium 9.3 mg/dL (8.5-10.1); Calculated LDL 67 mg/dL (<100); Chloride 105 mmol/L (98-107); Cholesterol 122 mg/dL (<200); Estimated GFR 102.76 (mL/min/1.73m2); Glucose 90 mg/dL (74-106); HDL Cholesterol 44 mg/dL (40-60); Potassium 4.6 mmol/L (3.5-5.1); Sodium 141 mmol/L (136-145); TSH (W/Ref FT4) 0.73 uIU/mL (0.36-3.74); Triglyceride 58 mg/dL (<150); Vitamin B12 293 pg/mL (193-986)
[2024-06-29 22:30] LABS: PSA, Screening 0.3 ng/mL (<=3.5)
== END 2024-06-29 10:16 | disposition home or self-care (01) ==
LOC: NCHCN 10:15
PROVIDERS: PCP Nurse Practitioner Family; Visit Provider Nurse Practitioner Family
DX: K21.9 Gastro-esophageal reflux disease without esophagitis (principal); Z12.5 Encounter for screening for malignant neoplasm of prostate; E03.9 Hypothyroidism, unspecified; Z00.00 Encounter for general adult medical examination without abnormal findings
CPT/HCPCS: 80053; 80061; 84153; 82607; 84443